=== PATIENT | female | born 1975 | race Two or more races ===

== ENCOUNTER 2022-09-22 11:05 | Emergency (ER) | payer BC ==
[~2022-09-22] VITALS: Ht 162.6 cm; Wt 88.5 kg
== END 2022-09-22 15:43 | disposition home or self-care (01) ==
LOC: ED 11:05
DX: S83.92XA Sprain of unspecified site of left knee, initial encounter (principal); X58.XXXA Exposure to other specified factors, initial encounter
CPT/HCPCS: 99283